=== PATIENT | male | born 1945 | race Caucasian/White ===

== ENCOUNTER → 2017-08-03 | Outpatient (CLI) | payer MEDICARE ==
[~2017-08-03] MED LIST: DICY10 PO; FURO10S PO; LISI10TA PO; PHEN12.5 PO; POTA-243 PO; PROP20TA3 PO
[2017-08-03 08:49] LABS: AUTOMATED NEUTROPHIL # 5.8 TH/MM3 (1.8-7.7); BASOPHIL # 0.1 TH/MM3 (0-0.2); EOSINOPHIL # 0.2 TH/MM3 (0-0.4); EOSINOPHIL % 2.6 % (0.0-4.0); HEMATOCRIT 47.4 % (39.0-51.0); HEMOGLOBIN 15.9 GM/DL (13.0-17.0); LYMPH % 21.3 % (9.0-44.0); LYMPHOCYTE # 1.9 TH/MM3 (1.0-4.8); MEAN CORPUSCULAR HEMOGLOBIN 29.4 PG (27.0-34.0); MEAN CORPUSCULAR HGB CONC 33.4 % (32.0-36.0); MEAN PLATELET VOLUME 10.2 FL (7.0-11.0); MONO % 9.2 % (0.0-8.0); MONOCYTE # 0.8 TH/MM3 (0-0.9); NEUT % 65.9 % (16.0-70.0); PLATELET COUNT 155 TH/MM3 (150-450); RED BLOOD COUNT 5.39 MIL/MM3 (4.50-5.90); RED CELL DISTRIBUTION WIDTH 14.2 % (11.6-17.2); WHITE BLOOD COUNT 8.7 TH/MM3 (4.0-11.0)
[2017-08-03 09:03] LABS: PROTHROMBIN TIME - PATIENT 9.9 SEC (9.8-11.6)
[2017-08-03 09:18] LABS: BICARBONATE 29.6 MEQ/L (21.0-32.0); CALCIUM 8.7 MG/DL (8.5-10.1); CREATININE 0.84 MG/DL (0.60-1.30)
[2017-08-03 09:46] LABS: BILIRUBIN, URINE NEG (NEG); BLOOD, URINE NEG (NEG); GLUCOSE,URINE NEG (NEG); KETONE, URINE NEG (NEG); MUCUS URINE FEW /lpf (OCC); NITRITE,URINE NEG (NEG); PH, URINE 5.5 (5.0-8.5); URINE COLOR YELLOW (YELLW/STRAW); URINE LEUKOCYTE ESTERASE NEG (NEG)
--- NOTE | 2017-08-04 08:20 | EKG ---
Date Performed: 08/03/2017 Time Performed: 08:50:55 PTAGE: 72 years EKG: Sinus rhythm NORMAL ECG NO PREVIOUS TRACING DOCTOR: Zohreh Hernandes Interpretating Date/Time 08/04/2017 08:18:08
== END ==
LOC: CPRE 08:12
PROVIDERS: ATTEND Orthopaedic Surgery Orthopaedic Surgery of the Spine
DX: Z01.810 Encounter for preprocedural cardiovascular examination (principal); Z01.812 Encounter for preprocedural laboratory examination; Z01.818 Encounter for other preprocedural examination; M17.12 Unilateral primary osteoarthritis, left knee
CPT/HCPCS: 36415; 80048; 81001; 85025; 85610; 85730; 93005

== ENCOUNTER 2017-08-21 05:34 | Inpatient (IN) | payer MEDICARE ==
[~2017-08-21] VITALS: Ht 170.2 cm; Wt 118.8 kg
[~2017-08-21 05:34] MED LIST changes: -DICY10 PO; -FURO10S PO; -LISI10TA PO; -PHEN12.5 PO; -POTA-243 PO
[2017-08-21] MEDS ORDERED: SODIUM CHLORID 0.9% 500 ML IV PRN (06:00)
[2017-08-21] MEDS ORDERED: METOPROLOL TARTRATE 25 MG TAB PO PRN (06:00)
[2017-08-21] MEDS ORDERED: POVIDONE IODINE 5% (ANTISEPSIS KIT) 4 APPLICATIONS EACH NARE PRN (06:00)
[2017-08-21] MEDS ORDERED: CHLORHEXIDINE GLUCONATE 2 % 1 PACK (2 CLOTHS) TOPICAL PRN (06:00)
[2017-08-21] MEDS ORDERED: LACTATED RINGER'S 1000 ML IV PRN (06:00)
[2017-08-21] MEDS ORDERED: LOSA50TA PO (06:12)
[2017-08-21] MEDS ORDERED: VANCOMYCIN 1000 MG/NS 250 ML (for <70 kg) IV SCH ×2 (06:15)
[2017-08-21] MEDS ORDERED: CHLORHEXIDINE GLUCONATE 4% SOLN 120 ML BTL TOPICAL SCH (06:15)
[2017-08-21] MEDS ORDERED: ceFAZolin 2 GM PREMIX 50 ML IV SCH (06:15)
[2017-08-21] MEDS ORDERED: VANCOMYCIN 1 GM/200 ML INJ 200 ML IV ONE (06:27)
[2017-08-21] MEDS ORDERED: ACETAMINOPHEN 1000 MG/100 ML 100 ML IV ONE (06:34)
[2017-08-21] MEDS ORDERED: BUPIVACAINE/EPINEPHRINE 0.25% 50 ML VIAL ONE (07:03)
[2017-08-21] MEDS ORDERED: GENTAMICIN SULFATE 80 MG/2 ML VIAL ONE (07:03)
[2017-08-21 07:10] VITALS: PULSE 52
[2017-08-21] MEDS ORDERED: TRANEXAMIC ACID INJ 1,146 MG in SODIUM CHLORIDE 0.9% INJ 100 ML IV SCH (07:30)
[2017-08-21] MEDS ORDERED: EXPAREL PERI-ARTICULAR INJECTION (TOTAL VOL. 60 ML) P-ARTICULR SCH ×2 (07:30)
[2017-08-21] MEDS ORDERED: ASPIRIN EC 81 MG TABEC PO ONE (09:30)
[2017-08-21] MEDS ORDERED: diphenhydrAMINE HCL 25 MG CAP PO PRN (09:30)
[2017-08-21] MEDS ORDERED: Post-op Orders (for Pharmacy) XX ONE (09:30)
[2017-08-21] MEDS ORDERED: NALOXONE HCL 0.4 MG/ML AMP IV PUSH PRN (09:30)
[2017-08-21] MEDS ORDERED: ALUMINUM/MAGNESIUM/SIMETH 30 ML CUP PO PRN (09:30)
--- NOTE | 2017-08-21 09:31 | PD.OP ---
cc: Geremias Moore. Operative Report Date of Surgery: August 21, 2017 Preoperative Diagnosis: Osteoarthritis left knee Postoperative Diagnosis: Same Procedure: Left total knee replacement arthroplasty, kinematic retaining Anesthesia: General Surgeon: Geremias Moore Party Plan Sales Unit Advisor(s): DANA Escalante Operation and Findings: EBL: 100 cc INDICATION: This patient presents with long-standing arthritis of the knee. Attachment record documents conservative measures. The patient now presents for surgical treatment. NOTE: Debbie Escalante PA-C was present for the entire surgical procedure as my water quality assistant. In my medical opinion her skill and care was necessary for proper management of this patient. TOURNIQUET TIME: 58 minutes COMPANY: [employer] FEMUR: Size 7 TIBIA: Size 7, fixed-bearing PATELLA: 38 mm POLYETHYLENE INSERT: 10 mm, kinematic retaining PROCEDURE: This patient was brought the operating room and anesthetized in the supine position. The patient was positioned supine on the table. The tourniquet was placed about the thigh, and the leg was scrubbed with alcohol followed by Hibiclens followed by ChloraPrep and draped sterilely. A timeout was done, and antibiotics were given. After exsanguination the tourniquet was inflated to 250 mmHg. An anterior incision was made and a median parapatellar arthrotomy was performed. The patella was released laterally and subluxed allowing freehand cut of the patella which was then sized. A metal cap was placed over the exposed patellar surface for protection. A photogrammetry airplane pilot hole was placed in the distal femur allowing a 6 valgus cut removing 10 mm from the distal femur. Anterior posterior and chamfer cuts were made. The attention was directed to the tibia. Retractors were positioned. The external alignment guide was used allowing the lateral tibia to be used as referencing guide and cut utilizing an oscillating saw taking care to avoid any injury to the surrounding soft tissues. This was sized properly. Trial reduction showed that the insert fit nicely. The patient had range of motion extension 0 flexion 125 . A medial release was not necessary. A local block with local anesthesia was utilized. The bony surfaces prepared. On the back table 2 packets of methylmethacrylate were mixed. The components were cemented. Excess cement was removed. The tourniquet let down and hemostasis was controlled. The final plastic insert was inserted. Range of motion was the same as previously noted. The arthrotomy was repaired with interrupted #1 Vicryl suture, subcutaneous tissue 2-0 Vicryl suture and skin with metallic brooke A sterile dressing was applied. Sponge counts, needle counts and instrument counts were all correct. The patient tolerated procedure well and was taken to recovery in satisfactory condition. FINDINGS: There was severe osteoarthritis especially of the medial compartment and retropatellar region. There was significant loss of bone stock involving the medial tibial plateau. The final solution was excellent. Stability was excellent. There was no complication that was appreciated. Geremias Moore MD August 21, 2017 09:31
[2017-08-21] MEDS ORDERED: OXYC1TAB63 PO (09:34)
[2017-08-21] MEDS ORDERED: ECASA81 PO (09:34)
--- NOTE | 2017-08-21 09:37 | HHI.FF ---
Face to Face Verification Diagnosis: (1) Primary localized osteoarthritis of left knee Physical Therapy Gait training Knee: Total knee, Protocol: Left, Full weight bearing Canvas Knee Splint: Other (In bed at nighttime for 4 weeks) Left LE Weight Bearing: WB as tolerated Additional Instructions Daily for 2 weeks Nursing RN: 3 days/week x 2 weeks Dressing Changes: Do not change dressing, Other (Change dressing if becomes saturated) I have seen patient Jaret Lynn on 08/21/17. My clinical findings support the need for the requested home health care services because: Limited ability to care for self High risk of falls I certify that my clinical findings support that this patient is homebound because: Unsteady gait/balance Geremias Moore MD August 21, 2017 09:37
--- NOTE | 2017-08-21 09:52 | HHI.DCPOC ---
Discharge Care Plan Diagnosis: (1) Primary localized osteoarthritis of left knee Your Health Problems Are: Incision/Drains Skin Breakdown Swelling Goals to Promote Your Health * To prevent worsening of your condition and complications * To maintain your health at the optimal level Directions to Meet Your Goals Take your medications as prescribed Follow your dietary instruction Follow activity as directed Keep your appointments as scheduled Take your immunizations and boosters as scheduled If your symptoms worsen call your PCP, if no PCP go to Urgent Care Center or Emergency Room Smoking is Dangerous to Your Health. Avoid second hand smoke Call the 24-hour hour crisis hotline for domestic abuse at Debbie Escalante August 21, 2017 09:52
--- NOTE | 2017-08-21 09:53 | HHI.DS ---
Discharge Summary Admission Date August 21, 2017 at 05:34 Discharge Date: Aug 24, 2017 Admitting Diagnosis see below Diagnosis: (1) Primary localized osteoarthritis of left knee Diagnosis: Principal ICD Codes: M17.12 - Unilateral primary osteoarthritis, left knee Procedures Left total knee arthroplasty Brief History This is a 72 year old male patient with a 5-6 year history of left knee pain self-treated with OTC aleve. He sought out medical treatment when his function began to decline. Imaging studies showed severe left knee medial compartment arthritis. He was given a cortisone injection and a prescription for diclofenac. He pursued supervised physical therapy with limited success. Because his function was declining unicompartmental replacement was discussed but over time his pain became global about the knee. It was then recommended he consider left total knee arthroplasty. He agreed and now presents for the above. Hospital Course Surgical treatment was performed on the day of admission without complication. He recovered well in PACU and was transferred to the orthopaedic floor. Pain was controlled with IV and oral medications following the administration of a block. He was compliant with physical therapy and all restrictions. After 3 days he was found to be stable and discharged to a detention facility. He was instructed to continue his therapy, ice the operative leg 2-3 times daily, and to pursue a high fiber diet for 3-4 days. He was given prescriptions for percocet 5mg and ASA 81mg. Pt Condition on Discharge: Stable Discharge Disposition: Discharge to SNF Discharge Instructions Diet Instructions: As Tolerated, No Restrictions, High Fiber Diet Activities You Can Perform: Weight Bearing as Russell Activities to Avoid: Strenuous Activity Additional Activity Instruc.: TKA protocol New Medications: Aspirin DR (Aspirin DR) 81 Mg Tabdr 81 MG PO BID for Prevent Blood Clot, #60 TAB Oxycodone HCl/Acetaminophen (Oxycodone-Acetaminophen 5-325) 5 Mg-325 Mg Tablet 1 TAB PO Q4H PRN for Pain, #42 TAB Continued Medications: Losartan (Losartan) 50 Mg Tab 50 MG PO DAILY for Blood Pressure Management, #30 TAB 0 Refills Propranolol (Propranolol) 20 Mg Tab 20 MG PO DAILY, #60 TAB 0 Refills Debbie Escalante August 21, 2017 09:53
[2017-08-21] MEDS ORDERED: *morphine SULFATE 4 MG/ML PERIprocedure ONLY ONE ×2 (09:54→10:04)
[2017-08-21] MEDS ORDERED: ONDANSETRON ODT 4 MG TAB PO PRN (10:00)
[2017-08-21] MEDS: LACTATED RINGER'S 1000 ML INJ 1,000 ML IV SCH ×2 (10:00→20:46)
[2017-08-21] MEDS ORDERED: WALKER WHEELS/F1 MIS (10:00)
[2017-08-21] MEDS ORDERED: COMMODE 3-IN-11 MIS (10:02)
[2017-08-21] MEDS ORDERED: *HYDROmorphone PF 0.5 MG/0.5 ML PERIprocedure ONLY ONE (10:24)
[2017-08-21] MEDS ORDERED: DO NOT ADM ANY ANTICOAGULANT DRUGS PRN (10:30)
--- NOTE | 2017-08-21 11:26 | RADRPT ---
EXAM DATE: 08/21/2017 11:23 AM EDT AGE/SEX: 72 years / Male INDICATIONS: Post op left knee. CLINICAL DATA: This is the patient's initial encounter. Patient reports that signs and symptoms have been present for 1 day and indicates a pain score of 0/10. MEDICAL/SURGICAL HISTORY: None. None. COMPARISON: No prior [facility] exams available for comparison. FINDINGS: AP and lateral views of the left knee demonstrate no fracture or dislocation. There is metallic hardw are at the distal femur and proximal tibia with a radiolucent patellar component. Skin brooke are pr esent anteriorly. There is soft tissue air, as expected. No large joint effusion is seen. No unexpect ed radiopaque foreign body is identified. CONCLUSION: Expected findings are present, as above, following a recent left total knee arthroplasty. Electronically signed by: Abdirahman Atwood MD 08/21/2017 11:25 AM EDT
[2017-08-21 11:45] VITALS: BP 175/82; PULSE 62; RESP 12; TEMP 97.4; O2SAT 93
[2017-08-21] MEDS ORDERED: DEXAMETHASONE SOD PHOS 4 MG/ML VIAL IV ONE (12:00)
[2017-08-21] MEDS ORDERED: GLYCOPYRROLATE 1 MG/5 ML SYRINGE IV PUSH ONE (12:00)
[2017-08-21] MEDS ORDERED: KETOROLAC TROMETHAMINE 30 MG/ML (IVP) VIAL IV PUSH ONE (12:00)
[2017-08-21] MEDS ORDERED: PROPOFOL 200 MG/20 ML AMP IV ONE (12:00)
[2017-08-21] MEDS ORDERED: LIDOCAINE HCL 1% PF 5 ML SYRINGE OTHER ONE (12:00)
[2017-08-21] MEDS ORDERED: ceFAZolin INJ 1,000 MG VIAL IV ONE (12:00)
[2017-08-21] MEDS ORDERED: SUCCINYLCHOLINE CHLORIDE 200 MG/10 ML VIAL IV ONE (12:00)
[2017-08-21 15:02] VITALS: BP 149/68; PULSE 66
[2017-08-21 16:00] VITALS: BP 167/72; PULSE 60; RESP 16; TEMP 97.5; O2SAT 93
[2017-08-21 16:52] VITALS: BP 155/72; PULSE 60; RESP 16; TEMP 98; O2SAT 95
--- NOTE | 2017-08-21 17:50 | PD.CONS ---
HPI Service [facility] Hospitalists Consult Requested By Reason for Consult Medical management, HTN Primary Care Physician Colby Desir M.D. Diagnoses: History of Present Illness 72-year-old male with past medical history significant for osteoarthritis, hypertension, essential tremor, and IBS who presents to [place] for elective left knee arthroplasty. Medical management has been consulted due to patient's history of hypertension by Dr. Moore. Patient is seen and examined in bed with at bedside. He reports recently being diagnosed with IBS and is following up with doctor regarding medication adjustments for this. He denies any pain or discomfort at the moment, shortness of breath, fevers, chills, nausea, vomiting, abdominal pain, dizziness, lightheadedness or chest pain. He reports taking propranolol 20 mg twice a day as well as losartan 50 mg daily for hypertension. He voices no acute concerns or complaints at the moment. Review of Systems Except as stated in HPI: all other systems reviewed are Neg Past Family Social History Allergies: Coded Allergies: No Known Allergies (Verified Allergy, Unknown, 08/21/17) Past Medical History Hypertension Essential tremor Osteoarthritis IBS Past Surgical History Cholecystectomy Penile reconstruction Basal cell of the nose with removal 2 Left knee arthroplasty 08/21 Reported Medications Reported Meds & Active Scripts Active Aspirin DR (Aspirin) 81 Mg Tabdr 81 Mg PO BID Oxycodone-Acetaminophen 5-325 (Oxycodone HCl/Acetaminophen) 5 Mg-325 Mg Tablet 1 Tab PO Q4H PRN Reported Losartan (Losartan Potassium) 50 Mg Tab 50 Mg PO DAILY Propranolol (Propranolol HCl) 20 Mg Tab 20 Mg PO twice a day Active Ordered Medications Current Medications Medications (Trade) Dose Ordered Sig/Magaly Route Start Time Stop Time Status Last Admin Lactated Ringer's 1,000 ml @ 30 mls/hr Q24H PRN IV 08/21/17 06:00 08/24/17 05:59 08/21/17 06:37 Sodium Chloride 500 ml @ 30 mls/hr [id number] PRN IV 08/21/17 06:00 08/24/17 05:59 (Lopressor) 25 mg MANAGER OF MEDICAL PRN PO 08/21/17 06:00 08/24/17 05:59 08/21/17 06:37 (Betadine 5% Antisepsis Kit) 1 applic MANAGER OF MEDICAL PRN EACH NARE 08/21/17 06:00 6/1/18 05:59 08/21/17 06:38 (Chlorhexidine 2% Cloth) 3 pack MANAGER OF MEDICAL PRN TOPICAL 08/21/17 06:00 08/24/17 05:59 08/21/17 05:50 (Hibiclens 4% Top Soln) 1 applic ONCE TOPICAL 08/21/17 06:15 08/24/17 06:14 08/21/17 06:38 Cefazolin Sodium/ Dextrose 50 ml @ 100 mls/hr MANAGER OF MEDICAL IV 08/21/17 06:15 08/24/17 06:14 08/21/17 07:43 Vancomycin HCl 1000 mg/Sodium Chloride 250 ml @ 250 mls/hr MANAGER OF MEDICAL IV 08/21/17 06:15 08/24/17 06:14 Tranexamic Acid 1146 mg/Sodium Chloride 111.46 ml @ 200 mls/ hr ONCE IV 08/21/17 07:30 08/22/17 13:30 08/21/17 07:45 (Cozaar) 50 mg DAILY PO 08/22/17 09:00 (Inderal) 20 mg DAILY PO 08/22/17 09:00 Lactated Ringer's 1,000 ml @ 80 mls/hr [id number] IV 08/21/17 10:00 08/21/17 10:00 Cefazolin Sodium 1000 mg/Sodium Chloride 100 ml @ 200 mls/hr Q6H IV 08/21/17 14:00 08/22/17 02:29 08/21/17 14:27 (Morphine Inj) 5 mg Q2H PRN IM 08/21/17 09:30 (Percocet 5-325 Mg) 1 tab Q4H PRN PO 08/21/17 09:30 (Percocet 5-325 Mg) 2 tab Q4H PRN PO 08/21/17 09:30 (Zofran Odt) 4 mg Q6H PRN PO 08/21/17 10:00 (Mag-Al Plus Susp Liq) 30 ml Q6H PRN PO 08/21/17 09:30 (Restoril) 15 mg HS PRN PO 08/21/17 21:00 (Narcan Inj) 0.4 mg UNSCH PRN IV PUSH 08/21/17 09:30 (Benadryl) 25 mg Q6H PRN PO 08/21/17 09:30 (Ecotrin Ec) 81 mg BID PO 08/21/17 21:00 ([facility] Nursing Information) ALL NURSING DEPARTME... UNSCH PRN .XX 08/21/17 10:30 08/22/17 10:29 Family History Patient reports he is adopted but does have knowledge of his past biological family history Mother: Essential tremor Sister: Stroke Social History Tobacco: Quit in 1988 Alcohol use: Has not drink in the past 38 years Illicit drug use: Denies Physical Exam Vital Signs Vital Signs Date Time Temp Pulse Resp B/P (MAP) Pulse Ox O2 Delivery O2 Flow Rate FiO2 08/21/17 16:52 98.0 60 16 155/72 (99) 95 08/21/17 16:00 97.5 60 16 167/72 (103) 93 08/21/17 15:02 66 149/68 (95) 08/21/17 11:45 97.4 62 12 175/82 (113) 93 08/21/17 11:10 66 14 164/78 (106) 99 Nasal Cannula 2 08/21/17 11:00 66 14 167/77 (107) 99 Nasal Cannula 2 08/21/17 10:45 61 14 161/65 (97) 98 Nasal Cannula 2 08/21/17 10:30 62 14 163/73 (103) 98 Nasal Cannula 2 08/21/17 10:15 58 14 144/63 (90) 100 Nasal Cannula 2 08/21/17 10:00 56 14 139/68 (91) 100 Nasal Cannula 2 08/21/17 09:43 97.3 70 14 151/79 (103) 94 Nasal Cannula 2 08/21/17 07:10 52 08/21/17 06:13 98.2 56 20 186/84 (118) 95 Physical Exam GENERAL: This is a well-nourished, well-developed patient, in no apparent distress. SKIN: No rashes, ecchymoses or lesions. Cool and dry. HEAD: Atraumatic. Normocephalic. No temporal or scalp tenderness. EYES: Pupils equal round and reactive. Extraocular motions intact. No scleral icterus. No injection or drainage. ENT: Nose without bleeding, purulent drainage. Throat without erythema or exudate. Uvula midline. Airway patent. NECK: Trachea midline. No JVD. Supple, nontender. CARDIOVASCULAR: Regular rate and rhythm without murmurs, gallops, or rubs. RESPIRATORY: Clear to auscultation. Breath sounds equal bilaterally. No wheezes , rales, or rhonchi. GASTROINTESTINAL: Abdomen soft, non-tender, nondistended, obese. No guarding. Normal active bowel sounds. MUSCULOSKELETAL: Extremities without clubbing, cyanosis, or edema. No joint tenderness, effusion, or edema noted. Left knee in immobilizer. NEUROLOGICAL: Awake and alert, oriented times. Cranial nerves II through XII intact. Motor and sensory grossly within normal limits. 5/5 muscle strength in bilateral upper and RLE. Normal speech. Imaging Last Impressions Knee X-Ray 08/21/17 0955 Signed Impressions: CONCLUSION: Expected findings are present, as above, following a recent left total knee art hroplasty. Assessment and Plan Assessment and Plan 72-year-old male with past medical history of hypertension, osteoarthritis, IBS , and essential tremors who presents to [place] for left knee arthroplasty done by Dr. Moore. [facility] consulted to assist with medical management. OA s/p total left knee arthroplasty -PT eval and treat, knee immobilizer per Ortho, encourage use of IS -Received nerve block following surgery. -Pain control with Percocet, morphine for breakthrough pain -Cefazolin 3 doses -Check H&H tomorrow in the a.m. Hypertension, BP elevated -We will continue patient's Cozaar and propranolol, dose of propanolol verified with patient and at bedside. -Will add clonidine as needed -Monitor BP and heart rate and adjust medications accordingly IBS -Will hold off on treatment for the moment, will be following up with MD as outpatient. -We will add as needed medications for constipation since patient will be on pain medication. DVT prophylaxis-SCDs in place, ASA 81 mg twice daily Discussed with Dr. Orozco, patient, and at bedside. Thank you kindly for this consultation, will continue to follow along. Eugenio Mar August 21, 2017 17:50
[2017-08-21] MEDS ORDERED: DOCUSATE SODIUM 100 MG CAP PO PRN (18:00)
[2017-08-21] MEDS ORDERED: BISACODYL 10 MG SUPP RECTAL PRN (18:00)
[2017-08-21] MEDS ORDERED: cloNIDine HCL 0.1 MG TAB PO PRN (18:00)
[2017-08-21] MEDS ORDERED: LACTULOSE SYRUP 20 GM/30 ML CUP PO PRN (18:00)
[2017-08-21 20:00] VITALS: BP 146/68; PULSE 70; RESP 18; TEMP 97.9; O2SAT 95
[2017-08-21] MEDS: ASPIRIN EC 81 MG TABEC PO SCH (20:46)
[2017-08-21] MEDS: PROPRANOLOL HCL 20 MG TAB PO SCH (20:47)
[2017-08-21] MEDS ORDERED: TEMAZEPAM 15 MG CAP PO PRN (21:00)
[2017-08-22] VITALS (7 sets, daily range): BP systolic 131–175; BP diastolic 63–75; PULSE 53–89; RESP 16–20; TEMP 97.5–99.1; O2SAT 90–94
[2017-08-22] MEDS: oxyCODONE/ACETAMINOPHEN 5 MG/325 MG TAB PO PRN ×5 (01:56→18:32)
[2017-08-22] MEDS: MORPHINE SULFATE 8 MG/ML INJ IM PRN ×2 (07:02→21:49)
[2017-08-22 08:09] LABS: HEMATOCRIT 40.8 % (39.0-51.0); HEMOGLOBIN 13.7 GM/DL (13.0-17.0)
[2017-08-22] MEDS ORDERED: PROPRANOLOL HCL 20 MG TAB PO SCH (09:00)
[2017-08-22] MEDS: ASPIRIN EC 81 MG TABEC PO SCH ×2 (09:18→21:49)
[2017-08-22] MEDS: LOSARTAN 50 MG TAB PO SCH (09:18)
[2017-08-22] MEDS: PROPRANOLOL HCL 20 MG TAB PO SCH ×2 (09:19→21:48)
[2017-08-22] MEDS: LACTATED RINGER'S 1000 ML INJ 1,000 ML IV SCH ×2 (11:00→23:30)
--- NOTE | 2017-08-22 15:00 | HHI.PR ---
Subjective Remarks Recently he was started. He seemed chills at this time appears to not acute distress. Says he is doing fairly well with physical therapy however he thinks she would benefit from rehab. No fever or chills. No nausea vomiting. No constipation. Objective Vitals Vital Signs Date Time Temp Pulse Resp B/P (MAP) Pulse Ox O2 Delivery O2 Flow Rate FiO2 08/22/17 12:00 97.5 57 17 152/70 (97) 93 08/22/17 08:00 97.6 53 16 133/64 (87) 90 08/22/17 04:00 98.2 73 20 137/63 (87) 94 08/22/17 00:00 98.0 68 18 131/65 (87) 92 08/21/17 20:00 97.9 70 18 146/68 (94) 95 08/21/17 18:57 Nasal Cannula 2.00 08/21/17 16:52 98.0 60 16 155/72 (99) 95 08/21/17 16:00 97.5 60 16 167/72 (103) 93 08/21/17 15:02 66 149/68 (95) I/O 08/21/17 08/21/17 08/21/17 08/22/17 08/22/17 08/22/17 07:00 15:00 23:00 07:00 15:00 23:00 Intake Total 2000 ml 600 ml 1968 ml Output Total 650 ml 300 ml 200 ml Balance 1350 ml 300 ml 1768 ml Intake Oral 600 ml 240 ml IV Total 1728 ml Other 2000 ml Output Urine Total 550 ml 300 ml 200 ml Estimated Blood Loss 100 ml # Voids 2 1 # Bowel Movements 0 Result Diagram: 08/22/17 0645 Imaging Last Impressions Knee X-Ray 08/21/17 0957 Signed Impressions: CONCLUSION: Expected findings are present, as above, following a recent left total knee art hroplasty. Objective Remarks GENERAL: This is a well-nourished, well-developed patient, in no apparent distress. CARDIOVASCULAR: Regular rate and rhythm without murmurs, gallops, or rubs. RESPIRATORY: Clear to auscultation. Breath sounds equal bilaterally. No wheezes , rales, or rhonchi. GASTROINTESTINAL: Abdomen soft, non-tender, nondistended, obese. No guarding. Normal active bowel sounds. MUSCULOSKELETAL: Extremities without clubbing, cyanosis, or edema. No joint tenderness, effusion, or edema noted. Left knee in immobilizer. NEUROLOGICAL: Awake and alert, oriented times. Cranial nerves II through XII intact. Motor and sensory grossly within normal limits. 5/5 muscle strength in bilateral upper and RLE. Normal speech. A/P Assessment and Plan 72-year-old male with past medical history of hypertension, osteoarthritis, IBS , and essential tremors who presents to [place] for left knee arthroplasty done by Dr. Moore. [facility] consulted to assist with medical management. OA s/p total left knee arthroplasty PT eval and treat, knee immobilizer per Ortho, encourage use of IS Received nerve block following surgery. Pain control with Percocet, morphine for breakthrough pain H&H stable Hypertension, BP elevated We will continue patient's Cozaar and propranolol, dose of propanolol verified with patient and at bedside. Will add clonidine as needed Monitor BP and heart rate and adjust medications accordingly IBS Will hold off on treatment for the moment, will be following up with MD as outpatient. We will add as needed medications for constipation since patient will be on pain medication. DVT prophylaxis-SCDs in place, ASA 81 mg twice daily, ppx per surgeon Discussed with the patient, nurse, at bedside. Nathalie Orozco MD August 22, 2017 14:59
--- NOTE | 2017-08-22 22:07 | PD.ORT.PN ---
Subjective Subjective Remarks His block wore off several hours after surgery. He notes substantial knee pain at the operative site. Some spasms into his quad region. No radiating leg pain below the knee. Appetite is improving. No new CP or SOB. Questions about surgery. Objective Vitals Vital Signs Date Time Temp Pulse Resp B/P (MAP) Pulse Ox O2 Delivery O2 Flow Rate FiO2 08/22/17 20:00 99.1 89 19 175/75 (108) 93 08/22/17 19:49 94 Nasal Cannula 2.00 08/22/17 16:00 97.5 60 17 163/74 (103) 94 08/22/17 13:27 20 08/22/17 12:00 97.5 57 17 152/70 (97) 93 08/22/17 08:00 97.6 53 16 133/64 (87) 90 08/22/17 04:00 98.2 73 20 137/63 (87) 94 08/22/17 00:00 98.0 68 18 131/65 (87) 92 I/O 08/21/17 08/21/17 08/21/17 08/22/17 08/22/17 08/22/17 07:00 15:00 23:00 07:00 15:00 23:00 Intake Total 2000 ml 600 ml 1968 ml 800 ml Output Total 650 ml 300 ml 200 ml Balance 1350 ml 300 ml 1768 ml 800 ml Intake Oral 600 ml 240 ml 800 ml IV Total 1728 ml Other 2000 ml Output Urine Total 550 ml 300 ml 200 ml Estimated Blood Loss 100 ml # Voids 2 1 3 # Bowel Movements 0 0 Result Diagram: 08/22/17 0645 Procedures Left total knee arthroplasty Objective Remarks Sitting in chair, prior to PT class this afternoon With his No acute distress Left LE Knee dressing c/d/i, mild swelling, no obvious erythema +motor at distal, +sens, +nvi Neg homans Assessment & Plan Ortho Post Op Day #: 1 Problem List: (1) Primary localized osteoarthritis of left knee ICD Codes: M17.12 - Unilateral primary osteoarthritis, left knee Assessment and Plan pod#1 s/p L TKA Moderate knee pain. Temporary relief w PO meds. PT - WBAT LLE. TKA precautions. No CPM. Encouraged daily ambulation. Hold dressing changes unless saturated. ASA 81mg for dvt prophylaxis. Ice knee 2-3 times daily. IS encouraged. D/C planning. Prefers [facility] but required 2 person assist for restroom today. Will discuss tomorrow. If no improvement, consider rehab. DME written. Debbie Escalante August 22, 2017 22:07
[2017-08-23 00:01] VITALS: BP 130/59; PULSE 66; RESP 17; TEMP 98.4; O2SAT 94
[2017-08-23] MEDS: oxyCODONE/ACETAMINOPHEN 5 MG/325 MG TAB PO PRN ×4 (06:13→19:36)
[2017-08-23 08:00] VITALS: BP 156/69; PULSE 69; RESP 16; TEMP 99.2; O2SAT 93
--- NOTE | 2017-08-23 08:39 | HHI.PR ---
Addendum to Inpatient Note Addendum Reason: Additional Documentation Additional Information Stable medically. H/H stable postsurgical. Medically cleared for DC. Nathalie Orozco MD August 23, 2017 08:39
[2017-08-23] MEDS: PROPRANOLOL HCL 20 MG TAB PO SCH ×2 (09:17→21:16)
[2017-08-23] MEDS: LOSARTAN 50 MG TAB PO SCH (09:17)
[2017-08-23] MEDS: ASPIRIN EC 81 MG TABEC PO SCH ×2 (09:17→21:16)
[2017-08-23 12:00] VITALS: BP 137/62; PULSE 55; RESP 16; TEMP 98; O2SAT 95
--- NOTE | 2017-08-23 12:57 | PD.ORT.PN ---
Subjective Subjective Remarks He is doing better today. He still has moderate left knee pain but is more optimistic. Denies any new radiating leg pain below the knee. Appetite is good. No new CP or SOB. Objective Vitals Vital Signs Date Time Temp Pulse Resp B/P (MAP) Pulse Ox O2 Delivery O2 Flow Rate FiO2 08/23/17 11:48 Room Air 2.00 08/23/17 08:00 99.2 69 16 156/69 (98) 93 08/23/17 00:01 98.4 66 17 130/59 (82) 94 08/22/17 21:45 Room Air 08/22/17 20:00 99.1 89 19 175/75 (108) 93 08/22/17 19:49 94 Nasal Cannula 2.00 08/22/17 16:00 97.5 60 17 163/74 (103) 94 08/22/17 13:27 20 I/O 08/22/17 08/22/17 08/22/17 08/23/17 08/23/17 08/23/17 07:00 15:00 23:00 07:00 15:00 23:00 Intake Total 1968 ml 800 ml 360 ml Output Total 200 ml Balance 1768 ml 800 ml 360 ml Intake Oral 240 ml 800 ml 360 ml IV Total 1728 ml Output Urine Total 200 ml # Voids 1 3 3 # Bowel Movements 0 0 Result Diagram: 08/22/17 0645 Procedures Left total knee arthroplasty Objective Remarks Ambulating around room w walker when I enter With his No acute distress Left LE Knee dressing c/d/i, mild swelling, no obvious erythema +motor at distal, +sens, +nvi Neg homans Assessment & Plan Ortho Post Op Day #: 2 Problem List: (1) Primary localized osteoarthritis of left knee ICD Codes: M17.12 - Unilateral primary osteoarthritis, left knee Assessment and Plan pod#2 s/p L TKA Pain improved today. Ortho stable. Ok to d/c home today w [facility]. PO pain meds as needed. PT - WBAT LLE. TKA precautions. No CPM. Encouraged daily ambulation. Hold dressing changes unless saturated. ASA 81mg for dvt prophylaxis. Ice knee 2-3 times daily. IS encouraged. F/U in 2 weeks as scheduled. D/C planning. DME written. Debbie Escalante August 23, 2017 12:57
[2017-08-23 16:00] VITALS: BP 147/72; PULSE 62; RESP 16; TEMP 97.1; O2SAT 93
[2017-08-23 20:55] VITALS: BP 143/67; PULSE 65; RESP 17; TEMP 98.2; O2SAT 93
[2017-08-24] MEDS: LACTATED RINGER'S 1000 ML INJ 1,000 ML IV SCH (00:30)
[2017-08-24 00:50] VITALS: BP 151/67; PULSE 62; RESP 17; TEMP 98.2; O2SAT 93
[2017-08-24] MEDS: oxyCODONE/ACETAMINOPHEN 5 MG/325 MG TAB PO PRN ×2 (02:41→11:03)
--- NOTE | 2017-08-24 07:52 | PD.ORT.PN ---
Subjective Subjective Remarks He is stable with varying knee pain depending on activity. He slept some last night. He continued to struggle with activity yesterday so he decided to stay one more night. He discussed discharge with family and prefers SNF. Appetite is good. No new CP or SOB. Objective Vitals Vital Signs Date Time Temp Pulse Resp B/P (MAP) Pulse Ox O2 Delivery O2 Flow Rate FiO2 08/24/17 00:50 98.2 62 17 151/67 (95) 93 08/23/17 21:00 93 Room Air 08/23/17 20:55 98.2 65 17 143/67 (92) 93 08/23/17 16:00 97.1 62 16 147/72 (97) 93 08/23/17 12:00 98.0 55 16 137/62 (87) 95 08/23/17 11:48 Room Air 2.00 08/23/17 08:00 99.2 69 16 156/69 (98) 93 I/O 08/23/17 08/23/17 08/23/17 08/24/17 08/24/17 08/24/17 07:00 15:00 23:00 07:00 15:00 23:00 Intake Total 360 ml 860 ml 480 ml Output Total 100 ml 750 ml Balance 360 ml 760 ml -270 ml Intake Oral 360 ml 860 ml 480 ml Output Urine Total 100 ml 750 ml # Voids 3 2 # Bowel Movements 0 Result Diagram: 08/22/17 0645 Procedures Left total knee arthroplasty Objective Remarks Laying in bed No acute distress VSS Left LE Knee dressing c/d/i, mild swelling, no obvious erythema +motor at distal, +sens, +nvi, 2+edema lower tibia/foot Neg homans Assessment & Plan Ortho Post Op Day #: 3 Problem List: (1) Primary localized osteoarthritis of left knee ICD Codes: M17.12 - Unilateral primary osteoarthritis, left knee Assessment and Plan pod#3 s/p L TKA Pain stable. No better or worse. Concerned about activity at home. D/C to SNF today. He is not a good candidate to go home yet. PO pain meds as needed. PT - WBAT LLE. TKA precautions. No CPM. Encouraged daily ambulation. Hold dressing changes unless saturated. ASA 81mg for dvt prophylaxis. Ice knee 2-3 times daily. IS encouraged. F/U in 2 weeks as scheduled. DME written. Debbie Escalante Aug 24, 2017 07:52
[2017-08-24 08:00] VITALS: BP 186/81; PULSE 64; RESP 21; TEMP 98.3; O2SAT 93
[2017-08-24] MEDS: LOSARTAN 50 MG TAB PO SCH (08:58)
[2017-08-24] MEDS: PROPRANOLOL HCL 20 MG TAB PO SCH (08:58)
[2017-08-24] MEDS: ASPIRIN EC 81 MG TABEC PO SCH (09:42)
[2017-08-24 12:00] VITALS: BP 132/62; PULSE 66; RESP 18; TEMP 98.6; O2SAT 95
== END 2017-08-24 12:18 | DRG 470 ==
LOC: HSDI 05:34 → N06B 11:18
PROVIDERS: ADMIT Orthopaedic Surgery Orthopaedic Surgery of the Spine; ATTEND Orthopaedic Surgery Orthopaedic Surgery of the Spine
PROC: 3E0T3BZ Introduction of Anesthetic Agent into Peripheral Nerves and Plexi, Percutaneous Approach (ICD-10-PCS; 2017-08-21)
PROC: 0SRD0J9 Replacement of Left Knee Joint with Synthetic Substitute, Cemented, Open Approach (ICD-10-PCS; principal; 2017-08-21 07:28)
DX: M17.12 Unilateral primary osteoarthritis, left knee (principal); Z68.41 Body mass index [BMI] 40.0-44.9, adult; I10 Essential (primary) hypertension; K58.9 Irritable bowel syndrome, unspecified; E66.9 Obesity, unspecified; G25.0 Essential tremor; Z79.899 Other long term (current) drug therapy; Z82.3 Family history of stroke; Z87.891 Personal history of nicotine dependence
CPT/HCPCS: 73560; 85014; 85018; 86850; 86900; 86901; 86920; 94150; C1776; C9290; J0131; J0330; J0690; J1100; J1170; J1580; J1885; J2270; J3010; J3370; J7120; L1830

== ENCOUNTER 2017-09-07 00:31 | Emergency (ER) | payer MEDICARE ==
[~2017-09-07] VITALS: Ht 170.2 cm; Wt 118.0 kg
[~2017-09-07 00:31] MED LIST changes: +COMMODE 3-IN-11 MIS; +ECASA81 PO; +LOSA50TA PO; +OXYC1TAB63 PO; +WALKER WHEELS/F1 MIS
[2017-09-07 00:43] VITALS: BP 195/83; PULSE 69; RESP 22; TEMP 97.7; O2SAT 96
[2017-09-07] MEDS ORDERED: TEMA15CA PO (01:19)
[2017-09-07] MEDS ORDERED: ACETAMINOPHEN/HYDROcodone 325 MG/7.5 MG TAB PO ONE (02:00)
[2017-09-07] MEDS ORDERED: KETOROLAC TROMETHAMINE 60 MG/2 ML (IM) VIAL IM ONE (02:00)
--- NOTE | 2017-09-07 02:44 | RADRPT ---
EXAM DATE: 09/07/2017 2:35 AM EDT AGE/SEX: 72 years / Male INDICATIONS: Left knee pain and swelling. Post total knee two weeks ago. CLINICAL DATA: This is the patient's subsequent encounter. Patient reports that signs and symptoms h ave been present for 2 days and indicates a pain score of 8/10. MEDICAL/SURGICAL HISTORY: Osteoarthritis. Total knee replacement, left. COMPARISON: No prior exams available for comparison. FINDINGS: There is a total knee prosthesis in place. The prosthetic components appear well placed. No acute abn ormality seen. There appears to be a mild effusion. CONCLUSION: Total knee prosthesis with the components being well placed. Electronically signed by: Abdirahman Smith MD 09/07/2017 2:43 AM EDT
--- NOTE | 2017-09-07 02:51 | PD ---
HPI . left knee pain Chief Complaint: Edema Time Seen by Provider: 00:50 Travel History International Travel<30 days: No Contact w/Intl Traveler<30days: No Traveled to known affect area: No History of Present Illness HPI pt is 72 yr old male with PMHx of left knee replacement 2 weeks ago and is receiving home physical therapy , He has a rehab machine that helps oincrease ROM that he uses with a visiting Rehab PT . After possible over extension with increase setting on Aram extension machine he now has tonight worsening pain not relieved by his home hydrocondone pills PO Pain is loaclized to LEFT knee and medial distal thigh area .. The operated left knee has no increased swelling no pus from incision sight changes the gauze daily and has not noticed increase of serous fluid pt has no redness no pus no bleeding . pt Saw Ortho PA yesterday who felt knee looked good and improving PFSH Past Medical History Blood Disorders: No Cancer: Yes (nose) Cardiovascular Problems: No Diabetes: No Endocrine: No Gastrointestinal Disorders: Yes (chronic diarrhea post diego) Genitourinary: No Hepatitis: No Hiatal Hernia: No Hypertension: Yes Immune Disorder: No Implanted Vascular Access Dvce: Yes Musculoskeletal: Yes (arthritis) Neurologic: No Psychiatric: No Reproductive: No Respiratory: No Thyroid Disease: No Tetanus Vaccination: > 5 Years PNEUMOCCOCAL Vaccine (Year): 2 Past Surgical History Abdominal Surgery: Yes (diego, I&D for MRSA wound ) AICD: No Cardiac Surgery: No Ear Surgery: No Endocrine Surgery: No Eye Surgery: Yes (bilat sx for narrow angle) Genitourinary Surgery: Yes (PENILE RECONSTRUCTION IN 07/15/07) Gynecologic Surgery: No Joint Replacement: Yes (KNEE) Oral Surgery: No Pacemaker: No Thoracic Surgery: No Other Surgery: Yes (SKIN GRAFT ON NOSE X2) Social History Alcohol Use: No Tobacco Use: No Substance Use: No Allergies-Medications (Allergen,Severity, Reaction): Coded Allergies: No Known Allergies (Verified Allergy, Unknown, 08/21/17) Reported Meds & Prescriptions Reported Meds & Active Scripts Active Aspirin DR (Aspirin) 81 Mg Tabdr 81 Mg PO BID Oxycodone-Acetaminophen 5-325 (Oxycodone HCl/Acetaminophen) 5 Mg-325 Mg Tablet 1 Tab PO Q4H PRN Reported Temazepam 15 Mg Cap 15 Mg PO HS PRN Losartan (Losartan Potassium) 50 Mg Tab 50 Mg PO HS Propranolol (Propranolol HCl) 20 Mg Tab 20 Mg PO BID Review of Systems Except as stated in HPI: all other systems reviewed are Neg Musculoskeletal: Positive: Myalgias, Arthralgias Physical Exam Narrative GENERAL: Left knee has Steri-Strips and a long bandage across the entire joint there is no blood on the bandage there is no purulent smell there is no exudate coming from the incision he has Steri-Strips that are in place there is no redness there is no signs of cellulitis there is no cords there is no tenderness to the calf there is no sign of DVT I think that he just overdid it and stretched his ligaments possibly slightly too much during rehab SKIN: Warm and dry. HEAD: Atraumatic. Normocephalic. EYES: Pupils equal and round. No scleral icterus. No injection or drainage. ENT: No nasal bleeding or discharge. Mucous membranes pink and moist. NECK: Trachea midline. No JVD. CARDIOVASCULAR: Regular rate and rhythm. RESPIRATORY: No accessory muscle use. Clear to auscultation. Breath sounds equal bilaterally. GASTROINTESTINAL: Abdomen soft, non-tender, nondistended. Hepatic and splenic margins not palpable. MUSCULOSKELETAL: Extremities Left knee swelling and bandages from Total knee replacement NEUROLOGICAL: Awake and alert. No obvious cranial nerve deficits. Motor grossly within normal limits. Five out of 5 muscle strength in the arms and legs. Normal speech. PSYCHIATRIC: Appropriate mood and affect; insight and judgment normal. Data Data Last Documented VS Vital Signs Date Time Temp Pulse Resp B/P (MAP) Pulse Ox O2 Delivery O2 Flow Rate FiO2 09/07/17 00:43 97.7 69 22 195/83 (120) 96 Orders Orders Ketorolac Inj (Toradol Inj) (09/07/17 02:00) Acetamin-Hydrocod 325-7.5 Mg ([place] 7.5 (09/07/17 02:00) Knee, Complete (4vws) (09/07/17 ) Ed Discharge Order (09/07/17 04:16) MDM Medical Decision Making Medical Screen Exam Complete: Yes Emergency Medical Condition: Yes Medical Record Reviewed: Yes Differential Diagnosis infection of post operative knee vs over extension pain , vs slippage of prosthetic vs post operative pain other Narrative Course toradol and 7.5 mg Hydrocodone given and xray shows no new pathology pt feels great relief from toradol ready for discharge for close follow up with Dr Padilla in AM Diagnosis Primary Impression: Painful total knee replacement Qualified Codes: T84.84XA - Pain due to internal orthopedic prosthetic devices , implants and grafts, initial encounter; Z96.652 - Presence of left artificial knee joint Disposition: 01 DISCHARGE HOME Condition: Good Benja Constantino MD Sep 07, 2017 02:51
== END 2017-09-07 04:25 | disposition home or self-care (01) ==
LOC: NEPE 00:31
DX: T84.84XA Pain due to internal orthopedic prosthetic devices, implants and grafts, initial encounter (principal); I10 Essential (primary) hypertension; Z96.652 Presence of left artificial knee joint
CPT/HCPCS: 73564; 96372; 99283; J1885